=== PATIENT | male | born 1995 | race Caucasian/White ===

== ENCOUNTER 2017-11-27 19:19 | Emergency (ER) | payer OTHER ==
[~2017-11-27] VITALS: Ht 172.7 cm; Wt 97.5 kg
[2017-11-27 22:39] VITALS: BP 124/75
--- NOTE | 2017-12-15 16:57 | OP ---
[address] [address] OPERATIVE REPORT Name: ONEAL,SUSAN PENAH [id number] Admission: 11/27/17 Attend Phys: Discharge: 11/27/17 Date of : 89 Report #: [id number] THIS REPORT FOR: //name// CC: [facility] physician/PCP Shelley Avalos PREOPERATIVE DIAGNOSIS: Foreign body (nail of left hand). POSTOPERATIVE DIAGNOSIS: Foreign body (nail of left hand). OPERATIVE PROCEDURE PERFORMED: Removal of foreign body from the left hand. DESCRIPTION OF PROCEDURE: Under a local anesthetic, routine prep and drape was performed of the left hand. The patient was noted to have a nail from a nail gun embedded into his left hand. The entrance wound was just dorsal to the second MP joint. The nail then traveled toward the volar aspect of the hand and exudate in the palm of his hand. An attempt had previously been made by the Emergency Room personnel to remove the nail, which was unsuccessful. Needle nose pliers and regular wire pliers were retrieved and were sterilized and were used to remove the nail. The entrance wound over the dorsal aspect of the hand was enlarged by ____ cm to retrieve the nail. After successfully removing the nail, the wound was again cleansed. A sterile dressing was applied. He tolerated the procedure well. He will be followed up as an outpatient. <ELECTRONICALLY SIGNED> By: Ranjit Hare MD 12/15/17 [id number] mariaelena [place]
== END 2017-11-27 22:41 | disposition home or self-care (01) ==
LOC: M.ERS 19:19
DX: S61.441A Puncture wound with foreign body of right hand, initial encounter (principal); X58.XXXA Exposure to other specified factors, initial encounter; Y93.89 Activity, other specified; Y92.89 Other specified places as the place of occurrence of the external cause; Y99.8 Other external cause status